=== PATIENT | male | born 1975 | race Caucasian/White ===

== ENCOUNTER 2017-12-01 14:22 | Observation (INO) | payer BC ==
[2017-12-01] MEDS ORDERED: Sodium Chloride 0.9% 10 ML Syringe FLUSH PRN (15:34)
--- NOTE | 2017-12-01 15:56 | EDM.PDOC ---
ED HPI GENERAL MEDICAL PROBLEM - General Chief Complaint: Skin Complaint Stated Complaint: POSS. BLOOD INFECTION-SENT FROM [facility] Time Seen by Provider: 12/01/17 15:23 Source of Information: Reports: Patient, Provider (notes) History Limitations: Reports: No Limitations - History of Present Illness INITIAL COMMENTS - FREE TEXT/NARRATIVE: Patient is a 42-year-old male presents ED complaining of left knee redness with the redness streaking up his left medial thigh. This initially started with a small abrasion to the anterior aspect of the left knee. He states on Friday started developing some localized redness. States as of this morning the redness has extended up his leg stopping just short of his groin. Pain does radiate into his left inguinal region. He has no significant pain with flexion extension of the knee. Denies any fevers, nausea/vomiting, open wounds, history of MRSA, or any additional complaints. He has a previous experience as a child as such that required IV antibiotics for 10 days. Patient was sent from the clinic for IV therapy. Patient has a history of hypertension and hyperlipidemia. Patient's currently taking no medications. Denies any allergies to medication Surgical history right wrist right shoulder in . Left Leg Pain Score (Numeric/FACES): 2 - Related Data Allergies Allergy/AdvReac Type Severity Reaction Status Date / Time No Known Allergies Allergy Verified 12/01/17 17:49 Home Meds: Home Meds . [No Known Home Meds] 12/01/17 [History] Past Medical History - Past Health History Medical/Surgical History: Denies Medical/Surgical History Musculoskeletal History: Reports: Fracture Dermatologic History: Reports: Other (See Below) Other Dermatologic History: Stepped on a nail as a kid and was hospitalized due to infection - Past Surgical History Musculoskeletal Surgical History: Reports: Shoulder Surgery Other Musculoskeletal Surgeries/Procedures:: Wrist surgery Social & Family History - Family History Family Medical History: Noncontributory - Tobacco Use Smoking Status *Q: Never Smoker - Recreational Drug Use Recreational Drug Use: No ED ROS GENERAL - Review of Systems Review Of Systems: See Below Constitutional: Denies: Fever, Chills, Malaise, Decreased Appetite Respiratory: Reports: No Symptoms Cardiovascular: Reports: No Symptoms GI/Abdominal: Reports: No Symptoms Musculoskeletal: Reports: Leg Pain (red streaking from the knee to the left inguinal region. ), Joint Pain (left anterior/medial knee) Skin: Reports: Erythema (redness to the left medial thigh) Neurological: Reports: No Symptoms ED EXAM, SKIN/RASH Exam: See Below Exam Limited By: No Limitations General Appearance: Alert, WD/WN, No Apparent Distress Ears: Hearing Grossly Normal Nose: Normal Inspection Throat/Mouth: Normal Voice, No Airway Compromise Neck: Normal Inspection, Supple Respiratory/Chest: No Respiratory Distress, Lungs Clear, Normal Breath Sounds Cardiovascular: Normal Peripheral Pulses, Regular Rate, Rhythm, No Murmur Peripheral Pulses: 4+: Femoral (L) GI/Abdominal: Normal Bowel Sounds, Soft, Non-Tender, No Organomegaly, No Distention (Male) Exam: Inguinal Lymphadenopathy (slight left) Extremities: Other (small abrasion to the left anterior knee with generalized redness with streaking up his left medial thigh stopping just short of inguinal region. Able to flex/extend the knee with minimal discomfort. ) Neurological: Alert, Oriented, CN II-XII Intact, Normal Cognition, No Motor/ Sensory Deficits Psychiatric: Normal Affect, Normal Mood Course - Vital Signs Last Recorded V/S: Last Vital Signs Temp 98.2 F 12/02/17 16:22 Pulse 76 12/02/17 16:22 Resp 16 12/02/17 16:22 BP 128/89 12/02/17 16:22 Pulse Ox 95 12/02/17 16:22 - Orders/Labs/Meds Orders: Medication Orders Acetaminophen (Tylenol) 650 mg PO Q4H PRN PRN Reason: Pain (Mild 1-3)/fever Hydrocodone Bitart/Acetaminophen (Olean 325-5 Mg) 1 tab PO Q4H PRN PRN Reason: Pain (moderate 4-6) Albuterol/Ipratropium (Duoneb 3.0-0.5 Mg/3 Ml) 3 ml NEB Q4H PRN PRN Reason: Shortness Of Breath/wheezing Bisacodyl (Dulcolax) 5 mg PO DAILY PRN PRN Reason: Constipation Diphenhydramine HCl (Benadryl) 25 mg IVPUSH Q6H PRN PRN Reason: Itching Docusate Sodium (Colace) 100 mg PO BID PRN PRN Reason: Constipation Enoxaparin Sodium (Lovenox) 40 mg SUBCUT DAILY [facility] Last Admin: 12/02/17 08:26 Dose: Not Given Famotidine (Pepcid) 20 mg PO BID [facility] Last Admin: 12/02/17 20:25 Dose: 20 mg Admin: 12/02/17 08:23 Dose: 20 mg Hydralazine HCl (Apresoline) 20 mg IVPUSH Q4H PRN PRN Reason: Hypertension Hydromorphone HCl (Dilaudid) 0.5 mg IVPUSH Q4H PRN PRN Reason: Pain (severe 7-10) Promethazine HCl 12.5 mg/ (Sodium Chloride) 50.5 mls @ 100 mls/hr IV Q6H PRN PRN Reason: Nausea/Vomiting Vancomycin HCl 1 gm/Vancomycin HCl 250 mg/ Sodium Chloride 250 mls @ 166.512 mls/hr IV Q8H [facility] Last Admin: 12/02/17 16:15 Dose: 166.512 mls/hr Infusion: 12/02/17 11:08 Dose: 166.512 mls/hr Admin: 12/02/17 09:37 Dose: 166.512 mls/hr Sodium Chloride (Normal Saline) 100 mls @ 60 mls/hr IV TID@0100,0900,1700 [facility] Last Admin: 12/02/17 17:44 Dose: 60 mls/hr Lorazepam (Ativan) 2 mg IVPUSH Q4H PRN PRN Reason: Seizures Lorazepam (Ativan) 1 mg IV Q6H PRN PRN Reason: Anxiety Magnesium Sulfate (Pharmacy To Dose - Magnesium Replacement) 0 dose .XX ASDIRECTED PRN PRN Reason: RX TO WATCH MAG LEVELS Metoprolol Tartrate (Lopressor) 5 mg IVPUSH Q4H PRN PRN Reason: Tachycardia Ondansetron HCl (Zofran) 4 mg IV Q6H PRN PRN Reason: Nausea/Vomiting Polyethylene Glycol (Miralax) 17 gm PO DAILY PRN PRN Reason: Constipation Potassium Chloride (Pharmacy To Dose - Potassium Replacement) 0 dose .XX ASDIRECTED PRN PRN Reason: RX TO WATCH K LEVELS Saccharomyces Boulardii (Florastor) 250 mg PO BID [facility] Last Admin: 12/02/17 20:25 Dose: 250 mg Admin: 12/02/17 08:23 Dose: 250 mg Admin: 12/01/17 20:12 Dose: 250 mg Senna/Docusate Sodium (Senna Plus) 1 tab PO BID PRN PRN Reason: Constipation Sodium Chloride (Saline Flush) 10 ml FLUSH ASDIRECTED PRN PRN Reason: Keep Vein Open Last Admin: 12/01/17 17:30 Dose: 10 ml Temazepam (Restoril) 15 mg PO BEDTIME PRN PRN Reason: Sleep Vancomycin HCl (Pharmacy To Dose - Vancomycin) 0 dose .XX ASDIRECTED PRN PRN Reason: RX TO DOSE VANCOMYCIN Labs: Laboratory Tests 12/01/17 Range/Units 16:35 Creatinine 1.1 (0.7-1.3) mg/dL Est Cr Clr Drug Dosing 89.41 mL/min Estimated GFR (MDRD) > 60 (>60) mL/min Meds: Medications Generic Name Dose Route Start Last Admin Trade Name Freq PRN Reason Stop Dose Admin Acetaminophen 650 mg 12/01/17 18:00 Tylenol PO Q4H PRN Pain (Mild 1-3)/fever Hydrocodone Bitart/Acetaminophen 1 tab 12/01/17 18:00 Olean 325-5 Mg PO Q4H PRN Pain (moderate 4-6) Albuterol/Ipratropium 3 ml 12/01/17 18:00 Duoneb 3.0-0.5 Mg/3 Ml NEB Q4H PRN Shortness Of Breath/wheezing Bisacodyl 5 mg 12/01/17 18:00 Dulcolax PO DAILY PRN Constipation Diphenhydramine HCl 25 mg 12/01/17 22:46 Benadryl IVPUSH Q6H PRN Itching Docusate Sodium 100 mg 12/01/17 18:00 Colace PO BID PRN Constipation Enoxaparin Sodium 40 mg 12/02/17 09:00 12/02/17 08:26 Lovenox SUBCUT Not Given DAILY LIZZETH Famotidine 20 mg 12/02/17 09:00 12/02/17 20:25 Pepcid PO 20 mg BID LIZZETH Administration Hydralazine HCl 20 mg 12/01/17 18:00 Apresoline IVPUSH Q4H PRN Hypertension Hydromorphone HCl 0.5 mg 12/01/17 18:00 Dilaudid IVPUSH Q4H PRN Pain (severe 7-10) Promethazine HCl 12.5 mg/ 50.5 mls @ 100 mls/hr 12/01/17 18:00 Sodium Chloride IV Q6H PRN Nausea/Vomiting Vancomycin HCl 1 gm/ 250 mls @ 166.512 mls/hr 12/02/17 09:00 12/02/17 16:15 Vancomycin HCl 250 mg/ Sodium IV 166.512 mls/hr Chloride Q8H LIZZETH Administration Sodium Chloride 100 mls @ 60 mls/hr 12/02/17 17:57 12/02/17 17:44 Normal Saline IV 60 mls/hr TID@0100,0900,1700 LIZZETH Administration Lorazepam 2 mg 12/01/17 18:00 Ativan IVPUSH Q4H PRN Seizures Lorazepam 1 mg 12/01/17 18:00 Ativan IV Q6H PRN Anxiety Magnesium Sulfate 0 dose 12/01/17 18:00 Pharmacy To Dose - Magnesium Replacement .XX ASDIRECTED PRN RX TO WATCH MAG LEVELS Metoprolol Tartrate 5 mg 12/01/17 18:00 Lopressor IVPUSH Q4H PRN Tachycardia Ondansetron HCl 4 mg 12/01/17 18:00 Zofran IV Q6H PRN Nausea/Vomiting Polyethylene Glycol 17 gm 12/01/17 18:00 Miralax PO DAILY PRN Constipation Potassium Chloride 0 dose 12/01/17 18:00 Pharmacy To Dose - Potassium Replacement .XX ASDIRECTED PRN RX TO WATCH K LEVELS Saccharomyces Boulardii 250 mg 12/01/17 21:00 12/02/17 20:25 Florastor PO 250 mg BID LIZZETH Administration Senna/Docusate Sodium 1 tab 12/01/17 18:00 Senna Plus PO BID PRN Constipation Sodium Chloride 10 ml 12/01/17 15:34 12/01/17 17:30 Saline Flush FLUSH 10 ml ASDIRECTED PRN Administration Keep Vein Open Temazepam 15 mg 12/01/17 18:00 Restoril PO BEDTIME PRN Sleep Vancomycin HCl 0 dose 12/01/17 18:15 Pharmacy To Dose - Vancomycin .XX ASDIRECTED PRN RX TO DOSE VANCOMYCIN Discontinued Medications Generic Name Dose Route Start Last Admin Trade Name Freq PRN Reason Stop Dose Admin Diphenhydramine HCl 25 mg 12/01/17 18:55 12/01/17 19:03 Benadryl IVPUSH 12/01/17 18:56 25 mg ONETIME ONE Administration Vancomycin HCl 2 gm/ Sodium 250 mls @ 250 mls/hr 12/01/17 16:11 12/01/17 17: 27 Chloride IV 12/01/17 17:10 250 mls/hr ONETIME ONE Administration Sodium Chloride 1,000 mls @ 250 mls/hr 12/01/17 17:45 Normal Saline IV ASDIRECTED LIZZETH Sodium Chloride 1,000 mls @ 250 mls/hr 12/01/17 17:20 12/01/17 17:27 Normal Saline IV 12/01/17 21:19 250 mls/hr ONETIME ONE Administration Vancomycin HCl 1 gm/ 500 mls @ 333.025 mls/hr 12/02/17 02:00 Vancomycin HCl 500 mg/ Sodium IV Chloride Q8H LIZZETH Vancomycin HCl 1 gm/ 500 mls @ 333.025 mls/hr 12/02/17 09:00 Vancomycin HCl 500 mg/ Sodium IV Chloride Q12H LIZZETH Vancomycin HCl 1 gm/ 250 mls @ 166.512 mls/hr 12/02/17 09:00 Vancomycin HCl 250 mg/ Sodium IV Chloride Q12H LIZZETH Sodium Chloride 100 mls @ 50 mls/hr 12/02/17 16:45 Normal Saline IV ASDIRECTED LIZZETH Methylprednisolone Sodium Succinate 60 mg 12/01/17 19:00 12/01/17 19:06 Solu-Medrol IVPUSH 12/01/17 19:01 60 mg ONETIME ONE Administration - Re-Assessments/Exams Free Text/Narrative Re-Assessment/Exam: Reviewed labs obtained today at the [facility]. CBC was essentially normal. ESR 23. Chemistry panel is essentially normal. IV ordered. [address] Shaikh he will see patient in the ED 12/01/17 16:[address] Shaikh will accept patient per MCG findings. I have ordered Blood cultures x2 and vancomycin 2 grams IV for loading dose. Departure - Departure Time of Disposition: 16:35 Disposition: Refer to Observation Condition: Good Clinical Impression: Lymphangitis Cellulitis Qualifiers: Site of cellulitis: extremity Site of cellulitis of extremity: lower extremity Laterality: left Qualified Code(s): L03.116 - Cellulitis of left lower limb - Discharge Information
[2017-12-01] MEDS ORDERED: Sodium Chloride 0.9% 1,000 ML IV ONE (17:20)
[2017-12-01] MEDS ORDERED: Sodium Chloride 0.9% 1,000 ML IV SCH (17:45)
[2017-12-01] MEDS ORDERED: Polyethylene Glycol 3350 Powder 17 GM Packet PO PRN (18:00)
[2017-12-01] MEDS ORDERED: Metoprolol Tartrate 5 MG/5 ML SDV IVPUSH PRN (18:00)
[2017-12-01] MEDS ORDERED: Temazepam 15 MG Cap PO PRN (18:00)
[2017-12-01] MEDS ORDERED: Promethazine 12.5 MG in Sodium Chloride 0.9% 50 ML IV PRN (18:00)
[2017-12-01] MEDS ORDERED: hydrALAZINE 20 MG/ML SDV IVPUSH PRN (18:00)
[2017-12-01] MEDS ORDERED: Acetaminophen 325 MG Tab PO PRN (18:00)
[2017-12-01] MEDS ORDERED: Ondansetron 4 MG/2 ML SDV IV PRN (18:00)
[2017-12-01] MEDS ORDERED: Docusate Sodium 100 MG Cap PO PRN (18:00)
[2017-12-01] MEDS ORDERED: LORazepam 2 MG/ML SDV IV PRN (18:00)
[2017-12-01] MEDS ORDERED: Albuterol/Ipratropium 3.0-0.5 MG/3 ML Neb Soln NEB PRN (18:00)
[2017-12-01] MEDS ORDERED: HYDROmorphone 0.5 MG/0.5 ML SYRINGE IVPUSH PRN (18:00)
[2017-12-01] MEDS ORDERED: LORazepam 2 MG/ML SDV IVPUSH PRN (18:00)
[2017-12-01] MEDS ORDERED: Bisacodyl 5 MG Tab PO PRN (18:00)
[2017-12-01] MEDS ORDERED: Acetaminophen/HYDROcodone 325-5 MG Tab PO PRN (18:00)
[2017-12-01] MEDS ORDERED: Vancomycin 500 MG SDV IV SCH (18:15)
--- NOTE | 2017-12-01 18:20 | PCM.HP ---
<Rosario Rodriguez - Last Filed: 12/01/17 18:28> H&P History of Present Illness - General Date of Service: 12/01/17 Admit Problem/Dx: Admission Diagnosis/Problem Admission Diagnosis/Problem Cellulitis Source of Information: Patient, Provider History Limitations: Reports: No Limitations - History of Present Illness Initial Comments - Free Text/Narative: This is a 42 yo male with past medical hx/o HTN, HLD who comes in from [facility] for left leg cellulitis. Pain is 1/10 with movement only. He reports no fever, chills, headache, nausea, vomiting, diarrhea, chest pain, shortness of breath, or GI/ complaints. His symptoms slightly improved after receiving fluids and IV Vanco in the ED. His initial workup at [facility] showed a CBC and Chemistry that are essentially normal. Only remarkable finding was for ESR 23. He is subsequently admitted to the medical floor for observation. He is a full code. He saw Tamera Fulton NP at [facility]. Left Leg Pain Score (Numeric/FACES): 2 - Related Data Allergies/Adverse Reactions: Allergies Allergy/AdvReac Type Severity Reaction Status Date / Time No Known Allergies Allergy Verified 12/01/17 17:49 Home Medications: Home Meds . [No Known Home Meds] 12/01/17 [History] Past Medical History - Past Health History Medical/Surgical History: Denies Medical/Surgical History Musculoskeletal History: Reports: Fracture Dermatologic History: Reports: Other (See Below) Other Dermatologic History: Stepped on a nail as a kid and was hospitalized due to infection - Past Surgical History Musculoskeletal Surgical History: Reports: Shoulder Surgery Other Musculoskeletal Surgeries/Procedures:: Wrist surgery Social & Family History - Family History Family Medical History: Noncontributory - Tobacco Use Smoking Status *Q: Never Smoker - Recreational Drug Use Recreational Drug Use: No H&P Review of Systems - Review of Systems: Review Of Systems: See Below General: Reports: No Symptoms. Denies: Fever, Chills HEENT: Reports: No Symptoms Pulmonary: Reports: No Symptoms. Denies: Shortness of Breath Cardiovascular: Reports: No Symptoms. Denies: Chest Pain Gastrointestinal: Reports: No Symptoms. Denies: Abdominal Pain, Diarrhea, Nausea, Vomiting Genitourinary: Reports: No Symptoms Musculoskeletal: Reports: Leg Pain (left leg, 1/10 with movement) Skin: Reports: No Symptoms Psychiatric: Reports: No Symptoms Neurological: Reports: No Symptoms Hematologic/Lymphatic: Reports: No Symptoms Immunologic: Reports: No Symptoms Exam - Exam Exam: See Below - Vital Signs Vital Signs: Last Vital Signs Temp 98.8 F 12/01/17 17:41 Pulse 86 12/01/17 17:41 Resp 18 12/01/17 17:41 BP 142/91 H 12/01/17 17:41 Pulse Ox 94 L 12/01/17 17:41 Weight: 113.398 kg - Exam General: Alert, Oriented, Cooperative, Mild Distress HEENT: PERRLA, Hearing Intact, Mucosa Moist & [place], Nares Patent, Normal Nasal Septum, Posterior Pharynx Clear, Conjunctiva Clear, EOMI, EACs Clear, TMs Clear Neck: Supple Lungs: Clear to Auscultation, Normal Respiratory Effort Cardiovascular: Regular Rate, Regular Rhythm GI/Abdominal Exam: Normal Bowel Sounds, Soft, Non-Tender, No Organomegaly, No Distention, No Abnormal Bruit, No Mass, Pelvis Stable (Male) Exam: Deferred Rectal (Males) Exam: Deferred Back Exam: Normal Inspection, Full Range of Motion, NT Extremities: Normal Range of Motion, No Pedal Edema, Normal Capillary Refill, Leg Pain (left leg, 1/10 with movement), Other (able to flex/extend left leg with minimal discomfort) Peripheral Pulses: 2+: Posterior Tibial (L), Posterior Tibial (R), Dorsalis Pedis (L), Dorsalis Pedis (R) Skin: Warm, Dry, Intact, Rash, Wound, Other (Small abrasion to left anterior knee with generalized redness and streaking up his left medial thigh stopping just short of inguinal region) Neurological: Cranial Nerves Intact (grossly) Psychiatric: Alert, Normal Affect, Normal Mood - Problem List (1) Cellulitis SNOMED Code(s): 241056227 ICD Code: L03.90 - CELLULITIS, UNSPECIFIED Status: Acute Priority: High Current Visit: Yes Qualifiers: Site of cellulitis: extremity Site of cellulitis of extremity: lower extremity Laterality: left Qualified Code(s): L03.116 - Cellulitis of left lower limb (2) Lymphangitis SNOMED Code(s): 4321770 ICD Code: I89.1 - LYMPHANGITIS Status: Acute Priority: High Current Visit: Yes (3) HTN (hypertension) SNOMED Code(s): 88722721 ICD Code: I10 - ESSENTIAL (PRIMARY) HYPERTENSION Status: Chronic Priority : Medium Current Visit: Yes Qualifiers: Hypertension type: unspecified Qualified Code(s): I10 - Essential (primary ) hypertension (4) HLD (hyperlipidemia) SNOMED Code(s): 46359989 ICD Code: E78.5 - HYPERLIPIDEMIA, UNSPECIFIED Status: Suspected Priority : Low Current Visit: No Qualifiers: Hyperlipidemia type: unspecified Qualified Code(s): E78.5 - Hyperlipidemia , unspecified Problem List Initiated/Reviewed/Updated: Yes Orders Last 24hrs: Active Orders 24 hr Category Date Time Status Admission Status [Patient Status] [ADT] Routine ADT 12/01/17 17:17 Active Ambulate [RC] ASDIRECTED Care 12/01/17 18:00 Active Height and Weight [RC] DAILY Care 12/01/17 18:00 Active Intake and Output [RC] QSHIFT Care 12/01/17 18:01 Active Oxygen Therapy [RC] PRN Care 12/01/17 18:00 Active Peripheral IV Care [RC] . DIRECTED Care 12/01/17 15:34 Active RT Aerosol Therapy [RC] ASDIRECTED Care 12/01/17 18:02 Active Up ad Beatrice [RC] ASDIRECTED Care 12/01/17 18:00 Active VTE/DVT Education [RC] PER UNIT ROUTINE Care 12/01/17 18:00 Active Vital Signs [RC] Q4H Care 12/01/17 18:00 Active OT Evaluation and Treatment [CONS] Routine Cons 12/01/17 18:03 Active PT Evaluation and Treatment [CONS] Routine Cons 12/01/17 18:03 Active Regular Diet [DIET] Diet 12/01/17 Dinner Active BASIC METABOLIC PANEL,BMP [CHEM] AM Lab 12/02/17 05:11 Ordered BASIC METABOLIC PANEL,BMP [CHEM] AM Lab 12/03/17 05:11 Ordered BASIC METABOLIC PANEL,BMP [CHEM] AM Lab 12/04/17 05:11 Ordered BASIC METABOLIC PANEL,BMP [CHEM] AM Lab 12/05/17 05:11 Ordered C-REACTIVE PROTEIN [CHEM] AM Lab 12/02/17 05:11 Ordered C-REACTIVE PROTEIN [CHEM] AM Lab 12/03/17 05:11 Ordered C-REACTIVE PROTEIN [CHEM] AM Lab 12/04/17 05:11 Ordered C-REACTIVE PROTEIN [CHEM] AM Lab 12/05/17 05:11 Ordered CBC WITH AUTO DIFF [HEME] AM Lab 12/02/17 05:11 Ordered CBC WITH AUTO DIFF [HEME] AM Lab 12/03/17 05:11 Ordered CBC WITH AUTO DIFF [HEME] AM Lab 12/04/17 05:11 Ordered CBC WITH AUTO DIFF [HEME] AM Lab 12/05/17 05:11 Ordered CULTURE BLOOD [BC] Stat Lab 12/01/17 16:35 Received CULTURE BLOOD [BC] Stat Lab 12/01/17 16:45 Received MAGNESIUM [CHEM] AM Lab 12/02/17 05:11 Ordered MAGNESIUM [CHEM] AM Lab 12/03/17 05:11 Ordered MAGNESIUM [CHEM] AM Lab 12/04/17 05:11 Ordered MAGNESIUM [CHEM] AM Lab 12/05/17 05:11 Ordered Acetaminophen [Tylenol] Med 12/01/17 18:00 Active 650 mg PO Q4H PRN Acetaminophen/HYDROcodone [[place] 325-5 MG] Med 12/01/17 18:00 Active 1 tab PO Q4H PRN Albuterol/Ipratropium [DuoNeb 3.0-0.5 MG/3 ML] Med 12/01/17 18:00 Active 3 ml NEB Q4H PRN Bisacodyl [Dulcolax] Med 12/01/17 18:00 Active 5 mg PO DAILY PRN Docusate Sodium [Colace] Med 12/01/17 18:00 Active 100 mg PO BID PRN Docusate Sodium/Sennosides [Senna Plus] Med 12/01/17 18:00 Active 1 tab PO BID PRN Enoxaparin [Lovenox] Med 12/02/17 09:00 Ordered 40 mg SUBCUT DAILY HYDROmorphone [Dilaudid] Med 12/01/17 18:00 Active 0.5 mg IVPUSH Q4H PRN LORazepam [Ativan] Med 12/01/17 18:00 Active 1 mg IV Q6H PRN LORazepam [Ativan] Med 12/01/17 18:00 Active 2 mg IVPUSH Q4H PRN Magnesium Rep Pharmacy to Dose [Pharmacy to Dose - Med 12/01/17 18:00 Pending Magnesium Replacement] 1 dose .XX ASDIRECTED Metoprolol Tartrate [Lopressor] Med 12/01/17 18:00 Active 5 mg IVPUSH Q4H PRN Ondansetron [Zofran] Med 12/01/17 18:00 Active 4 mg IV Q6H PRN Polyethylene Glycol 3350 [MiraLAX] Med 12/01/17 18:00 Active 17 gm PO DAILY PRN Potassium Rep Pharmacy to Dose [Pharmacy to Dose - Med 12/01/17 18:00 Pending Potassium Replacement] 1 dose .XX ASDIRECTED Promethazine [Phenergan] 12.5 mg Med 12/01/17 18:00 Active Sodium Chloride 0.9% [Normal Saline] 50 ml IV Q6H Saccharomyces Boulardii [Florastor] Med 12/01/17 21:00 Active 250 mg PO BID Sodium Chloride 0.9% [Normal Saline] 1,000 ml Med 12/01/17 17:20 Active IV ONETIME Sodium Chloride 0.9% [Saline Flush] Med 12/01/17 15:34 Active 10 ml FLUSH ASDIRECTED PRN Temazepam [Restoril] Med 12/01/17 18:00 Active 15 mg PO BEDTIME PRN Vancomycin Med 12/01/17 18:15 Ordered 1,700.97 mg IV Q12H Vancomycin Pharmacy to Dose [Pharmacy to Dose - Med 12/01/17 18:15 Ordered Vancomycin] 1 dose .XX ASDIRECTED hydrALAZINE [Apresoline] Med 12/01/17 18:00 Active 20 mg IVPUSH Q4H PRN Blood Culture x2 Reflex Set [OM.PC] Stat Oth 12/01/17 16:11 Ordered Peripheral IV Insertion Adult [OM.PC] Routine Oth 12/01/17 15:34 Ordered Resuscitation Status Routine Resus Stat 12/01/17 18:00 Ordered Medication Orders Acetaminophen (Tylenol) 650 mg PO Q4H PRN PRN Reason: Pain (Mild 1-3)/fever Hydrocodone Bitart/Acetaminophen ([place] 325-5 Mg) 1 tab PO Q4H PRN PRN Reason: Pain (moderate 4-6) Albuterol/Ipratropium (Duoneb 3.0-0.5 Mg/3 Ml) 3 ml NEB Q4H PRN PRN Reason: Shortness Of Breath/wheezing Bisacodyl (Dulcolax) 5 mg PO DAILY PRN PRN Reason: Constipation Docusate Sodium (Colace) 100 mg PO BID PRN PRN Reason: Constipation Enoxaparin Sodium (Lovenox) 40 mg SUBCUT DAILY [facility] Hydralazine HCl (Apresoline) 20 mg IVPUSH Q4H PRN PRN Reason: Hypertension Hydromorphone HCl (Dilaudid) 0.5 mg IVPUSH Q4H PRN PRN Reason: Pain (severe 7-10) Sodium Chloride (Normal Saline) 1,000 mls @ 250 mls/hr IV ONETIME ONE Stop: 12/01/17 21:19 Last Admin: 12/01/17 17:27 Dose: 250 mls/hr Promethazine HCl 12.5 mg/ (Sodium Chloride) 50.5 mls @ 100 mls/hr IV Q6H PRN PRN Reason: Nausea/Vomiting Lorazepam (Ativan) 2 mg IVPUSH Q4H PRN PRN Reason: Seizures Lorazepam (Ativan) 1 mg IV Q6H PRN PRN Reason: Anxiety Magnesium Sulfate (Pharmacy To Dose - Magnesium Replacement) 1 dose .XX ASDIRECTED [facility] Metoprolol Tartrate (Lopressor) 5 mg IVPUSH Q4H PRN PRN Reason: Tachycardia Ondansetron HCl (Zofran) 4 mg IV Q6H PRN PRN Reason: Nausea/Vomiting Polyethylene Glycol (Miralax) 17 gm PO DAILY PRN PRN Reason: Constipation Potassium Chloride (Pharmacy To Dose - Potassium Replacement) 1 dose .XX ASDIRECTED [facility] Saccharomyces Boulardii (Florastor) 250 mg PO BID [facility] Senna/Docusate Sodium (Senna Plus) 1 tab PO BID PRN PRN Reason: Constipation Sodium Chloride (Saline Flush) 10 ml FLUSH ASDIRECTED PRN PRN Reason: Keep Vein Open Last Admin: 12/01/17 17:30 Dose: 10 ml Temazepam (Restoril) 15 mg PO BEDTIME PRN PRN Reason: Sleep Vancomycin HCl (Vancomycin) 1,700.97 mg 15 mg/kg (1700.97 mg) IV Q12H [facility] Vancomycin HCl (Pharmacy To Dose - Vancomycin) 1 dose .XX ASDIRECTED [facility] Assessment/Plan Comment:: I/P: Acute: Left leg Cellulitis with Lymphangitis -No fever/chills, tachycardia, leukocytosis -Lymphangitis from left knee to just before inguinal region -1/10 pain with movement only -Vanco 2g IV given in ED -Continue Vancomycin 15mg/kg Q12 hours -Blood Cultures -MRSA-->pending -Monitor -Supportive care Chronic: HTN --> not currently taking medication; Hydralazine PRN HLD Plan: Transfered to medical floor for observation He remains stable and continues to improve clinically Other orders as indicated above Routine AM labs DVT Prophylaxis: Lovenox GI Prophylaxis: Pepcid Ambulated as tolerated Code Status: Full code; PCP: Tamera Fulton, MARINA at [facility] <Sadie Shaikh - Last Filed: 12/01/17 19:42> H&P History of Present Illness - General Admit Problem/Dx: Admission Diagnosis/Problem Admission Diagnosis/Problem Cellulitis Exam - Vital Signs Vital Signs: Last Vital Signs Temp 37.1 C 12/01/17 17:41 Pulse 86 12/01/17 17:41 Resp 18 12/01/17 17:41 BP 142/91 H 12/01/17 17:41 Pulse Ox 94 L 12/01/17 17:41 Problem List Initiated/Reviewed/Updated: Yes Orders Last 24hrs: Active Orders 24 hr Category Date Time Status Admission Status [Patient Status] [ADT] Routine ADT 12/01/17 17:17 Active Ambulate [RC] ASDIRECTED Care 12/01/17 18:00 Active Height and Weight [RC] DAILY Care 12/01/17 18:00 Active Intake and Output [RC] QSHIFT Care 12/01/17 18:01 Active Oxygen Therapy [RC] PRN Care 12/01/17 18:00 Active Peripheral IV Care [RC] . DIRECTED Care 12/01/17 15:34 Active RT Aerosol Therapy [RC] ASDIRECTED Care 12/01/17 18:02 Active Up ad Beatrice [RC] ASDIRECTED Care 12/01/17 18:00 Active VTE/DVT Education [RC] PER UNIT ROUTINE Care 12/01/17 18:00 Active Vital Signs [RC] Q4H Care 12/01/17 18:00 Active OT Evaluation and Treatment [CONS] Routine Cons 12/01/17 18:03 Active PT Evaluation and Treatment [CONS] Routine Cons 12/01/17 18:03 Active Regular Diet [DIET] Diet 12/01/17 Dinner Active BASIC METABOLIC PANEL,BMP [CHEM] AM Lab 12/02/17 05:11 Ordered BASIC METABOLIC PANEL,BMP [CHEM] AM Lab 12/03/17 05:11 Ordered BASIC METABOLIC PANEL,BMP [CHEM] AM Lab 12/04/17 05:11 Ordered BASIC METABOLIC PANEL,BMP [CHEM] AM Lab 12/05/17 05:11 Ordered C-REACTIVE PROTEIN [CHEM] AM Lab 12/02/17 05:11 Ordered C-REACTIVE PROTEIN [CHEM] AM Lab 12/03/17 05:11 Ordered C-REACTIVE PROTEIN [CHEM] AM Lab 12/04/17 05:11 Ordered C-REACTIVE PROTEIN [CHEM] AM Lab 12/05/17 05:11 Ordered CBC WITH AUTO DIFF [HEME] AM Lab 12/02/17 05:11 Ordered CBC WITH AUTO DIFF [HEME] AM Lab 12/03/17 05:11 Ordered CBC WITH AUTO DIFF [HEME] AM Lab 12/04/17 05:11 Ordered CBC WITH AUTO DIFF [HEME] AM Lab 12/05/17 05:11 Ordered CULTURE BLOOD [BC] Stat Lab 12/01/17 16:35 Received CULTURE BLOOD [BC] Stat Lab 12/01/17 16:45 Received MAGNESIUM [CHEM] AM Lab 12/02/17 05:11 Ordered MAGNESIUM [CHEM] AM Lab 12/03/17 05:11 Ordered MAGNESIUM [CHEM] AM Lab 12/04/17 05:11 Ordered MAGNESIUM [CHEM] AM Lab 12/05/17 05:11 Ordered METH-RESIST S.AUR,MRSA BY PCR [MOLEC] Routine Lab 12/01/17 18:31 Ordered Acetaminophen [Tylenol] Med 12/01/17 18:00 Active 650 mg PO Q4H PRN Acetaminophen/HYDROcodone [[place] 325-5 MG] Med 12/01/17 18:00 Active 1 tab PO Q4H PRN Albuterol/Ipratropium [DuoNeb 3.0-0.5 MG/3 ML] Med 12/01/17 18:00 Active 3 ml NEB Q4H PRN Bisacodyl [Dulcolax] Med 12/01/17 18:00 Active 5 mg PO DAILY PRN Docusate Sodium [Colace] Med 12/01/17 18:00 Active 100 mg PO BID PRN Docusate Sodium/Sennosides [Senna Plus] Med 12/01/17 18:00 Active 1 tab PO BID PRN Enoxaparin [Lovenox] Med 12/02/17 09:00 Pending 40 mg SUBCUT DAILY Famotidine [Pepcid] Med 12/02/17 09:00 Ordered 20 mg PO BID HYDROmorphone [Dilaudid] Med 12/01/17 18:00 Active 0.5 mg IVPUSH Q4H PRN LORazepam [Ativan] Med 12/01/17 18:00 Active 1 mg IV Q6H PRN LORazepam [Ativan] Med 12/01/17 18:00 Active 2 mg IVPUSH Q4H PRN Magnesium Rep Pharmacy to Dose [Pharmacy to Dose - Med 12/01/17 18:00 Pending Magnesium Replacement] 1 dose .XX ASDIRECTED Metoprolol Tartrate [Lopressor] Med 12/01/17 18:00 Active 5 mg IVPUSH Q4H PRN Ondansetron [Zofran] Med 12/01/17 18:00 Active 4 mg IV Q6H PRN Polyethylene Glycol 3350 [MiraLAX] Med 12/01/17 18:00 Active 17 gm PO DAILY PRN Potassium Rep Pharmacy to Dose [Pharmacy to Dose - Med 12/01/17 18:00 Pending Potassium Replacement] 1 dose .XX ASDIRECTED Promethazine [Phenergan] 12.5 mg Med 12/01/17 18:00 Active Sodium Chloride 0.9% [Normal Saline] 50 ml IV Q6H Saccharomyces Boulardii [Florastor] Med 12/01/17 21:00 Active 250 mg PO BID Sodium Chloride 0.9% [Normal Saline] 1,000 ml Med 12/01/17 17:20 Active IV ONETIME Sodium Chloride 0.9% [Saline Flush] Med 12/01/17 15:34 Active 10 ml FLUSH ASDIRECTED PRN Temazepam [Restoril] Med 12/01/17 18:00 Active 15 mg PO BEDTIME PRN Vancomycin Pharmacy to Dose [Pharmacy to Dose - Med 12/01/17 18:15 Pending Vancomycin] 1 dose .XX ASDIRECTED hydrALAZINE [Apresoline] Med 12/01/17 18:00 Active 20 mg IVPUSH Q4H PRN Blood Culture x2 Reflex Set [OM.PC] Stat Oth 12/01/17 16:11 Ordered Peripheral IV Insertion Adult [OM.PC] Routine Oth 12/01/17 15:34 Ordered Resuscitation Status Routine Resus Stat 12/01/17 18:00 Ordered Medication Orders Acetaminophen (Tylenol) 650 mg PO Q4H PRN PRN Reason: Pain (Mild 1-3)/fever Hydrocodone Bitart/Acetaminophen ([place] 325-5 Mg) 1 tab PO Q4H PRN PRN Reason: Pain (moderate 4-6) Albuterol/Ipratropium (Duoneb 3.0-0.5 Mg/3 Ml) 3 ml NEB Q4H PRN PRN Reason: Shortness Of Breath/wheezing Bisacodyl (Dulcolax) 5 mg PO DAILY PRN PRN Reason: Constipation Docusate Sodium (Colace) 100 mg PO BID PRN PRN Reason: Constipation Enoxaparin Sodium (Lovenox) 40 mg SUBCUT DAILY [facility] Famotidine (Pepcid) 20 mg PO BID [facility] Hydralazine HCl (Apresoline) 20 mg IVPUSH Q4H PRN PRN Reason: Hypertension Hydromorphone HCl (Dilaudid) 0.5 mg IVPUSH Q4H PRN PRN Reason: Pain (severe 7-10) Sodium Chloride (Normal Saline) 1,000 mls @ 250 mls/hr IV ONETIME ONE Stop: 12/01/17 21:19 Last Admin: 12/01/17 17:27 Dose: 250 mls/hr Promethazine HCl 12.5 mg/ (Sodium Chloride) 50.5 mls @ 100 mls/hr IV Q6H PRN PRN Reason: Nausea/Vomiting Lorazepam (Ativan) 2 mg IVPUSH Q4H PRN PRN Reason: Seizures Lorazepam (Ativan) 1 mg IV Q6H PRN PRN Reason: Anxiety Magnesium Sulfate (Pharmacy To Dose - Magnesium Replacement) 1 dose .XX ASDIRECTED [facility] Metoprolol Tartrate (Lopressor) 5 mg IVPUSH Q4H PRN PRN Reason: Tachycardia Ondansetron HCl (Zofran) 4 mg IV Q6H PRN PRN Reason: Nausea/Vomiting Polyethylene Glycol (Miralax) 17 gm PO DAILY PRN PRN Reason: Constipation Potassium Chloride (Pharmacy To Dose - Potassium Replacement) 1 dose .XX ASDIRECTED [facility] Saccharomyces Boulardii (Florastor) 250 mg PO BID [facility] Senna/Docusate Sodium (Senna Plus) 1 tab PO BID PRN PRN Reason: Constipation Sodium Chloride (Saline Flush) 10 ml FLUSH ASDIRECTED PRN PRN Reason: Keep Vein Open Last Admin: 12/01/17 17:30 Dose: 10 ml Temazepam (Restoril) 15 mg PO BEDTIME PRN PRN Reason: Sleep Vancomycin HCl (Pharmacy To Dose - Vancomycin) 1 dose .XX ASDIRECTED [facility] Assessment/Plan Comment:: Patient complained of sudden scalp and head itching but no arms or body issues. He appears somewhat red in the face and neck but not in the torso. At this point , he does not meet the classic red man syndrome but will give him intravenous benadryl and steroid.
[2017-12-01] MEDS ORDERED: diphenhydrAMINE 50 MG/ML SDV IVPUSH ONE (18:55)
[2017-12-01] MEDS ORDERED: methylPREDNISolone Sodium Succinate 125 MG/2 ML SDV IVPUSH ONE (19:00)
[2017-12-01] MEDS: Saccharomyces Boulardii (Probiotic) 250 MG Cap PO SCH (20:12)
[2017-12-01] MEDS ORDERED: diphenhydrAMINE 50 MG/ML SDV IVPUSH PRN (22:46)
[2017-12-02] MEDS ORDERED: Vancomycin 1500 MG in Sodium Chloride 0.9% 500 ML IV SCH ×6 (02:00→09:00)
[2017-12-02] MEDS: Famotidine 20 MG Tab PO SCH ×2 (08:23→20:25)
[2017-12-02] MEDS: Enoxaparin 40 MG/0.4 ML Syringe SUBCUT SCH ×2 (08:23→08:26)
[2017-12-02] MEDS: Saccharomyces Boulardii (Probiotic) 250 MG Cap PO SCH ×2 (08:23→20:25)
[2017-12-02] MEDS ORDERED: Vancomycin 1 GM, Vancomycin 250 MG in Sodium Chloride 0.9% 250 ML IV SCH (09:00)
[2017-12-02] MEDS: Vancomycin 1 GM, Vancomycin 250 MG in Sodium Chloride 0.9% 250 ML IV SCH ×2 (09:37→16:15)
--- NOTE | 2017-12-02 13:02 | PCM.PN ---
- General Info Date of Service: 12/02/17 Admission Dx/Problem (Free Text): Admission Diagnosis/Problem Admission Diagnosis/Problem Cellulitis Subjective Update: In to see Gilberto today. He is sitting up in bed. Overall he is doing quite well. He has no complaints. He has been sleeping well. Good appetite. Pain is controlled. No leg pain, chest pain, dyspnea, itchiness, or facial/neck redness. Urinating. No concerns from nursing. Functional Status: Reports: Pain Controlled, Tolerating Diet, Ambulating, Urinating - Review of Systems General: Reports: No Symptoms. Denies: Fever, Chills HEENT: Reports: No Symptoms Pulmonary: Reports: No Symptoms. Denies: Shortness of Breath Cardiovascular: Reports: No Symptoms. Denies: Chest Pain, Palpitations Gastrointestinal: Reports: No Symptoms Genitourinary: Reports: No Symptoms. Denies: Dysuria, Frequency, Burning, Pain Musculoskeletal: Reports: No Symptoms. Denies: Leg Pain Skin: Reports: Other (Small abrasion to left anterior knee with generalized redness and streaking up his left medial thigh stopping just short of inguinal region) Neurological: Reports: No Symptoms Psychiatric: Reports: No Symptoms - Patient Data Vitals - Most Recent: Last Vital Signs Temp 98.1 F 12/02/17 08:17 Pulse 90 12/02/17 08:17 Resp 14 12/02/17 08:17 BP 128/88 12/02/17 08:19 Pulse Ox 96 12/02/17 08:17 Weight - Most Recent: 249 lb I&O - Last 24 Hours: Intake & Output 12/01/17 12/02/17 12/02/17 22:59 06:59 14:59 Intake Total 900 120 Output Total 1825 Balance -925 120 Lab Results Last 24 Hours: Laboratory Results - last 24 hr 12/01/17 12/02/17 12/02/17 Range/Units 16:35 06:17 06:17 WBC 10.81 H (4.23-9.07) K/mm3 RBC 4.77 (4.63-6.08) M/mm3 Hgb 14.3 (13.7-17.5) gm/L Hct 43.2 (40.1-51.0) % MCV 90.6 (79.0-92.2) fl MCH 30.0 (25.7-32.2) pg MCHC 33.1 (32.2-35.5) g/dl RDW Std Deviation 41.7 (35.1-43.9) fL Plt Count 285 (163-337) K/mm3 MPV 9.3 L (9.4-12.3) fl Neut % (Auto) 86.3 H (34.0-67.9) % Lymph % (Auto) 8.2 L (21.8-53.1) % [place] % (Auto) 5.2 L (5.3-12.2) % Eos % (Auto) 0 L (0.8-7.0) Baso % (Auto) 0.1 (0.1-1.2) % Neut # (Auto) 9.33 H (1.78-5.38) K/mm3 Lymph # (Auto) 0.89 L (1.32-3.57) K/mm3 [place] # (Auto) 0.56 (0.30-0.82) K/mm3 Eos # (Auto) 0.00 L (0.04-0.54) K/mm3 Baso # (Auto) 0.01 (0.01-0.08) K/mm3 Manual Slide Review Abnormal smear Sodium 138 (136-145) mEq/L Potassium 4.5 (3.5-5.1) mEq/L Chloride 104 (98-107) mEq/L Carbon Dioxide 26 (21-32) mEq/L Anion Gap 12.5 (5-15) BUN 10 (7-18) mg/dL Creatinine 1.1 1.0 (0.7-1.3) mg/dL Est Cr Clr Drug Dosing 89.41 98.35 mL/min Estimated GFR (MDRD) > 60 > 60 (>60) mL/min BUN/Creatinine Ratio 10.0 L (14-18) Glucose 129 H (74-106) mg/dL Calcium 9.4 (8.5-10.1) mg/dL Magnesium 2.1 (1.8-2.4) mg/dl C-Reactive Protein 1.5 H* (<1.0) mg/dL MRSA (PCR) 12/02/17 Range/Units 06:21 WBC (4.23-9.07) K/mm3 RBC (4.63-6.08) M/mm3 Hgb (13.7-17.5) gm/L Hct (40.1-51.0) % MCV (79.0-92.2) fl MCH (25.7-32.2) pg MCHC (32.2-35.5) g/dl RDW Std Deviation (35.1-43.9) fL Plt Count (163-337) K/mm3 MPV (9.4-12.3) fl Neut % (Auto) (34.0-67.9) % Lymph % (Auto) (21.8-53.1) % [place] % (Auto) (5.3-12.2) % Eos % (Auto) (0.8-7.0) Baso % (Auto) (0.1-1.2) % Neut # (Auto) (1.78-5.38) K/mm3 Lymph # (Auto) (1.32-3.57) K/mm3 [place] # (Auto) (0.30-0.82) K/mm3 Eos # (Auto) (0.04-0.54) K/mm3 Baso # (Auto) (0.01-0.08) K/mm3 Manual Slide Review Sodium (136-145) mEq/L Potassium (3.5-5.1) mEq/L Chloride (98-107) mEq/L Carbon Dioxide (21-32) mEq/L Anion Gap (5-15) BUN (7-18) mg/dL Creatinine (0.7-1.3) mg/dL Est Cr Clr Drug Dosing mL/min Estimated GFR (MDRD) (>60) mL/min BUN/Creatinine Ratio (14-18) Glucose (74-106) mg/dL Calcium (8.5-10.1) mg/dL Magnesium (1.8-2.4) mg/dl C-Reactive Protein (<1.0) mg/dL MRSA (PCR) Negative Med Orders - Current: Current Medications Acetaminophen (Tylenol) 650 mg PO Q4H PRN PRN Reason: Pain (Mild 1-3)/fever Hydrocodone Bitart/Acetaminophen ([place] 325-5 Mg) 1 tab PO Q4H PRN PRN Reason: Pain (moderate 4-6) Albuterol/Ipratropium (Duoneb 3.0-0.5 Mg/3 Ml) 3 ml NEB Q4H PRN PRN Reason: Shortness Of Breath/wheezing Bisacodyl (Dulcolax) 5 mg PO DAILY PRN PRN Reason: Constipation Diphenhydramine HCl (Benadryl) 25 mg IVPUSH Q6H PRN PRN Reason: Itching Docusate Sodium (Colace) 100 mg PO BID PRN PRN Reason: Constipation Enoxaparin Sodium (Lovenox) 40 mg SUBCUT DAILY [facility] Last Admin: 12/02/17 08:26 Dose: Not Given Famotidine (Pepcid) 20 mg PO BID [facility] Last Admin: 12/02/17 08:23 Dose: 20 mg Hydralazine HCl (Apresoline) 20 mg IVPUSH Q4H PRN PRN Reason: Hypertension Hydromorphone HCl (Dilaudid) 0.5 mg IVPUSH Q4H PRN PRN Reason: Pain (severe 7-10) Promethazine HCl 12.5 mg/ (Sodium Chloride) 50.5 mls @ 100 mls/hr IV Q6H PRN PRN Reason: Nausea/Vomiting Vancomycin HCl 1 gm/Vancomycin HCl 250 mg/ Sodium Chloride 250 mls @ 166.512 mls/hr IV Q8H [facility] Last Admin: 12/02/17 09:37 Dose: 166.512 mls/hr Lorazepam (Ativan) 2 mg IVPUSH Q4H PRN PRN Reason: Seizures Lorazepam (Ativan) 1 mg IV Q6H PRN PRN Reason: Anxiety Magnesium Sulfate (Pharmacy To Dose - Magnesium Replacement) 0 dose .XX ASDIRECTED PRN PRN Reason: RX TO WATCH MAG LEVELS Metoprolol Tartrate (Lopressor) 5 mg IVPUSH Q4H PRN PRN Reason: Tachycardia Ondansetron HCl (Zofran) 4 mg IV Q6H PRN PRN Reason: Nausea/Vomiting Polyethylene Glycol (Miralax) 17 gm PO DAILY PRN PRN Reason: Constipation Potassium Chloride (Pharmacy To Dose - Potassium Replacement) 0 dose .XX ASDIRECTED PRN PRN Reason: RX TO WATCH K LEVELS Saccharomyces Boulardii (Florastor) 250 mg PO BID [facility] Last Admin: 12/02/17 08:23 Dose: 250 mg Senna/Docusate Sodium (Senna Plus) 1 tab PO BID PRN PRN Reason: Constipation Sodium Chloride (Saline Flush) 10 ml FLUSH ASDIRECTED PRN PRN Reason: Keep Vein Open Last Admin: 12/01/17 17:30 Dose: 10 ml Temazepam (Restoril) 15 mg PO BEDTIME PRN PRN Reason: Sleep Vancomycin HCl (Pharmacy To Dose - Vancomycin) 0 dose .XX ASDIRECTED PRN PRN Reason: RX TO DOSE VANCOMYCIN Discontinued Medications Diphenhydramine HCl (Benadryl) 25 mg IVPUSH ONETIME ONE Stop: 12/01/17 18:56 Last Admin: 12/01/17 19:03 Dose: 25 mg Vancomycin HCl 2 gm/ Sodium (Chloride) 250 mls @ 250 mls/hr IV ONETIME ONE Stop: 12/01/17 17:10 Last Admin: 12/01/17 17:27 Dose: 250 mls/hr Sodium Chloride (Normal Saline) 1,000 mls @ 250 mls/hr IV ASDIRECTED LIZZETH Sodium Chloride (Normal Saline) 1,000 mls @ 250 mls/hr IV ONETIME ONE Stop: 12/01/17 21:19 Last Admin: 12/01/17 17:27 Dose: 250 mls/hr Vancomycin HCl 1 gm/Vancomycin HCl 500 mg/ Sodium Chloride 500 mls @ 333.025 mls/hr IV Q8H LIZZETH Vancomycin HCl 1 gm/Vancomycin HCl 500 mg/ Sodium Chloride 500 mls @ 333.025 mls/hr IV Q12H LIZZETH Vancomycin HCl 1 gm/Vancomycin HCl 250 mg/ Sodium Chloride 250 mls @ 166.512 mls/hr IV Q12H LIZZETH Methylprednisolone Sodium Succinate (Solu-Medrol) 60 mg IVPUSH ONETIME ONE Stop: 12/01/17 19:01 Last Admin: 12/01/17 19:06 Dose: 60 mg - Exam Quality Assessment: DVT Prophylaxis General: Alert, Oriented, Cooperative, No Acute Distress HEENT: Pupils Equal, Pupils Reactive, EOMI, Mucous Membr. Moist/[place] Neck: Supple Lungs: Clear to Auscultation, Normal Respiratory Effort Cardiovascular: Regular Rate, Regular Rhythm GI/Abdominal Exam: Normal Bowel Sounds, Soft, Non-Tender, No Organomegaly, No Distention, No Abnormal Bruit, No Mass, Pelvis Stable (Male) Exam: Deferred Back Exam: Normal Inspection, Full Range of Motion Extremities: Normal Range of Motion, No Pedal Edema, Normal Capillary Refill. No: Leg Pain (able to flex/extend left leg with no discomfort) Peripheral Pulses: 2+: Posterior Tibial (L), Posterior Tibial (R), Dorsalis Pedis (L), Dorsalis Pedis (R) Skin: Warm, Dry, Intact, Rash, Other (Small abrasion to left anterior knee with generalized redness and streaking up his left medial thigh stopping just short of inguinal region) Wound/Incisions: No Drainage, Erythema Improving Neurological: No New Focal Deficit Psy/Mental Status: Alert, Normal Affect, Normal Mood - Problem List & Annotations (1) Cellulitis SNOMED Code(s): 433915761 Code(s): L03.90 - CELLULITIS, UNSPECIFIED Status: Acute Priority: High Current Visit: Yes Qualifiers: Site of cellulitis: extremity Site of cellulitis of extremity: lower extremity Laterality: left Qualified Code(s): L03.116 - Cellulitis of left lower limb (2) Lymphangitis SNOMED Code(s): 6228132 Code(s): I89.1 - LYMPHANGITIS Status: Acute Priority: High Current Visit: Yes (3) HTN (hypertension) SNOMED Code(s): 81775129 Code(s): I10 - ESSENTIAL (PRIMARY) HYPERTENSION Status: Chronic Priority : Medium Current Visit: Yes Qualifiers: Hypertension type: unspecified Qualified Code(s): I10 - Essential (primary ) hypertension (4) HLD (hyperlipidemia) SNOMED Code(s): 34395178 Code(s): E78.5 - HYPERLIPIDEMIA, UNSPECIFIED Status: Suspected Priority: Low Current Visit: No Qualifiers: Hyperlipidemia type: unspecified Qualified Code(s): E78.5 - Hyperlipidemia , unspecified - Problem List Review Problem List Initiated/Reviewed/Updated: Yes - My Orders Last 24 Hours: My Active Orders 12/02/17 09:00 Famotidine [Pepcid] 20 mg PO BID - Plan Plan:: I/P: Acute: Left leg Cellulitis with Lymphangitis -No fever/chills, tachycardia, leukocytosis -Lymphangitis from left knee to just before inguinal region--> improving -07/30 pain with movement only--> no pain now -Vanco 2g IV given in ED -Continue Vancomycin 15mg/kg Q12 hours -Blood Cultures--> pending -MRSA-->negative -Monitor -Supportive care Resolved: Vancomyocin Sensitivity, mild -Pruritis of scalp and mild erythema of face/neck--> IV Benadryl and Steroids -No chest pain, dyspnea, torso erythema, angioedema, or hypotension -Does not fit criteria for "Red Man Syndrome" -Decrease infusion rate -Monitor Chronic: HTN --> not currently taking medication; Hydralazine PRN HLD Plan: Transfered to medical floor for observation He remains stable and continues to improve clinically Other orders as indicated above Routine AM labs DVT Prophylaxis: Lovenox GI Prophylaxis: Pepcid Ambulated as tolerated Code Status: Full code; PCP: Tamera Fulton NP at [facility]
[2017-12-02] MEDS ORDERED: Sodium Chloride 0.9% 100 ML IV SCH (16:45)
[2017-12-02] MEDS: Sodium Chloride 0.9% 100 ML IV SCH (17:44)
[2017-12-03] MEDS ORDERED: Vancomycin 500 MG SDV ONE (00:37)
[2017-12-03] MEDS: Vancomycin 1 GM, Vancomycin 250 MG in Sodium Chloride 0.9% 250 ML IV SCH ×2 (00:58→09:24)
[2017-12-03] MEDS: Sodium Chloride 0.9% 100 ML IV SCH ×2 (00:58→09:23)
[2017-12-03] MEDS: Enoxaparin 40 MG/0.4 ML Syringe SUBCUT SCH (09:24)
[2017-12-03] MEDS: Saccharomyces Boulardii (Probiotic) 250 MG Cap PO SCH (09:26)
[2017-12-03] MEDS: Famotidine 20 MG Tab PO SCH (09:26)
--- NOTE | 2017-12-03 11:28 | PCM.DCSUM1 ---
Discharge Summary - Hospital Course HPI Initial Comments: Patient is a 42-year-old male presents ED complaining of left knee redness with the redness streaking up his left medial thigh. This initially started with a small abrasion to the anterior aspect of the left knee. He states on Friday started developing some localized redness. States as of this morning the redness has extended up his leg stopping just short of his groin. Pain does radiate into his left inguinal region. He has no significant pain with flexion extension of the knee. Denies any fevers, nausea/vomiting, open wounds, history of MRSA, or any additional complaints. He has a previous experience as a child as such that required IV antibiotics for 10 days. Patient was sent from the clinic for IV therapy. Patient has a history of hypertension and hyperlipidemia. Patient's currently taking no medications. Denies any allergies to medication Surgical history right wrist right shoulder in . - Discharge Data Discharge Date: 12/03/17 (ADMIT 12/01/17) Discharge Disposition: Home, Self-Care 01 Condition: Good - Discharge Diagnosis/Problem(s) (1) Cellulitis SNOMED Code(s): 868438745 ICD Code: L03.90 - CELLULITIS, UNSPECIFIED Status: Acute Priority: High Current Visit: Yes Qualifiers: Site of cellulitis: extremity Site of cellulitis of extremity: lower extremity Laterality: left Qualified Code(s): L03.116 - Cellulitis of left lower limb (2) Lymphangitis SNOMED Code(s): 7881371 ICD Code: I89.1 - LYMPHANGITIS Status: Acute Priority: High Current Visit: Yes (3) HTN (hypertension) SNOMED Code(s): 54010140 ICD Code: I10 - ESSENTIAL (PRIMARY) HYPERTENSION Status: Chronic Priority : Medium Current Visit: Yes Qualifiers: Hypertension type: unspecified Qualified Code(s): I10 - Essential (primary ) hypertension (4) HLD (hyperlipidemia) SNOMED Code(s): 36308495 ICD Code: E78.5 - HYPERLIPIDEMIA, UNSPECIFIED Status: Suspected Priority : Low Current Visit: No Qualifiers: Hyperlipidemia type: unspecified Qualified Code(s): E78.5 - Hyperlipidemia , unspecified - Patient Summary/Data Operative Procedure(s) Performed: none Complications: none Consults: none Labs Pending at D/C: none Recommended Follow-up Testing/Procedures: Follow up with PCP in 7-10 days Planned Operative Procedure(s) after DC: none Hospital Course: I/P: Acute: Left leg Cellulitis with Lymphangitis -No fever/chills, tachycardia, leukocytosis -Lymphangitis from left knee to just before inguinal region--> improving -07/30 pain with movement only--> no pain now -WBC 10.81-->6.62; CRP 1.5-->0.7 -Vanco 2g IV given in ED -Continue Vancomycin 15mg/kg Q12 hours--> Send home on Bactrim DS BID x 5 days -Blood Cultures--> no growth after 1 day -MRSA-->negative -Monitor -Supportive care Resolved: Vancomyocin Sensitivity, mild -Pruritis of scalp and mild erythema of face/neck--> IV Benadryl and Steroids -No chest pain, dyspnea, torso erythema, angioedema, or hypotension -Does not fit criteria for "Red Man Syndrome" -Decrease infusion rate -Monitor Chronic: HTN --> not currently taking medication; Hydralazine PRN HLD Plan: Transfered to medical floor for observation He remains stable and continues to improve clinically Other orders as indicated above Routine AM labs DVT Prophylaxis: Lovenox GI Prophylaxis: Pepcid Ambulated as tolerated D/C today Code Status: Full code; PCP: Tamera Fultno NP at [facility] Gilberto has recovered quite well after being admitted for left lower leg cellulitis with lympangitis. He had multiple tests done and was given IV antibiotic treatment. He should follow-up with his primary care provider in 7- 10 days. His BP was also elevated while here and should be rechecked with his primary care provider for further workup. He was discharged home on Bactrim DS BID x5 days for completion of cellulitis treatment. He will be discharged home today. - Patient Instructions Diet: Heart Healthy Diet, Low Sodium Activity: As Tolerated Driving: May Drive Today Showering/Bathing: May Shower Notify Provider of: Fever, Increased Pain, Swelling and Redness, Drainage, Nausea and/or Vomiting - Discharge Plan Prescriptions/Med Rec: Sulfamethoxazole/Trimethoprim [Bactrim Ds Tablet] 1 tab PO BID 5 Days #10 tablet Home Medications: Home Meds Sulfamethoxazole/Trimethoprim [Bactrim Ds Tablet] 1 tab PO BID 5 Days #10 tablet 12/03/17 [Rx] Patient Handouts: Lymphangitis, Adult, Cellulitis, Adult, [id number], Hypertension, [id number] Forms: ED Department Discharge Referrals: PCP,None [Primary Care Provider] - - Discharge Summary/Plan Comment DC Time >30 min.: Yes (40) - General Info Date of Service: 12/03/17 Admission Dx/Problem (Free Text: Admission Diagnosis/Problem Admission Diagnosis/Problem Cellulitis Subjective Update: In to see Gilberto today. He is standing up packing to go home. Overall he is doing quite well. He has no complaints. He has been sleeping well. Good appetite. Pain is controlled. No leg pain, chest pain, dyspnea, itchiness, or facial/neck redness. Urinating. No concerns from nursing. He is ready to be d/c' d home today. Functional Status: Reports: Pain Controlled, Tolerating Diet, Ambulating, Urinating - Review of Systems General: Reports: No Symptoms. Denies: Fever, Chills HEENT: Reports: No Symptoms Pulmonary: Reports: No Symptoms. Denies: Shortness of Breath Cardiovascular: Reports: No Symptoms. Denies: Chest Pain Gastrointestinal: Reports: No Symptoms. Denies: Abdominal Pain, Diarrhea, Nausea, Vomiting Genitourinary: Reports: No Symptoms. Denies: Dysuria, Frequency, Burning, Pain Musculoskeletal: Reports: No Symptoms Skin: Reports: Other (Small abrasion to left anterior knee with generalized redness, no more streaking up his left medial thigh) Neurological: Reports: No Symptoms Psychiatric: Reports: No Symptoms - Patient Data Vitals - Most Recent: Last Vital Signs Temp 98.2 F 12/03/17 04:46 Pulse 61 12/03/17 04:46 Resp 14 12/03/17 04:46 BP 123/84 12/03/17 04:46 Pulse Ox 94 L 12/03/17 04:46 Weight - Most Recent: 248 lb I&O - Last 24 hours: Intake & Output 12/02/17 12/03/17 12/03/17 22:59 06:59 14:59 Intake Total 1430 1450 180 Output Total 1300 2100 Balance 130 -650 180 Lab Results - Last 24 hrs: Laboratory Results - last 24 hr 05/16/18 05/16/18 05/16/18 Range/Units 05:48 05:48 08:38 WBC 6.62 (4.23-9.07) K/mm3 RBC 4.75 (4.63-6.08) M/mm3 Hgb 14.3 (13.7-17.5) gm/L Hct 43.1 (40.1-51.0) % MCV 90.7 (79.0-92.2) fl MCH 30.1 (25.7-32.2) pg MCHC 33.2 (32.2-35.5) g/dl RDW Std Deviation 42.0 (35.1-43.9) fL Plt Count 261 (163-337) K/mm3 MPV 9.8 (9.4-12.3) fl Neut % (Auto) 63.8 (34.0-67.9) % Lymph % (Auto) 23.7 (21.8-53.1) % [place] % (Auto) 10.0 (5.3-12.2) % Eos % (Auto) 2.0 (0.8-7.0) Baso % (Auto) 0.3 (0.1-1.2) % Neut # (Auto) 4.23 (1.78-5.38) K/mm3 Lymph # (Auto) 1.57 (1.32-3.57) K/mm3 [place] # (Auto) 0.66 (0.30-0.82) K/mm3 Eos # (Auto) 0.13 (0.04-0.54) K/mm3 Baso # (Auto) 0.02 (0.01-0.08) K/mm3 Sodium 139 (136-145) mEq/L Potassium 3.8 (3.5-5.1) mEq/L Chloride 104 (98-107) mEq/L Carbon Dioxide 28 (21-32) mEq/L Anion Gap 10.8 (5-15) BUN 15 (7-18) mg/dL Creatinine 1.1 (0.7-1.3) mg/dL Est Cr Clr Drug Dosing 89.41 mL/min Estimated GFR (MDRD) > 60 (>60) mL/min BUN/Creatinine Ratio 13.6 L (14-18) Glucose 106 (74-106) mg/dL Calcium 8.9 (8.5-10.1) mg/dL Magnesium 2.1 (1.8-2.4) mg/dl C-Reactive Protein 0.7 (<1.0) mg/dL Vancomycin Trough 16.6 (10.0-20.0) TIERA Results - Last 24 hrs: Microbiology 12/01/17 16:45 Aerobic Blood Culture - Preliminary Blood - Venous - Lab Draw NO GROWTH AFTER 1 DAY Anaerobic Blood Culture - Preliminary NO GROWTH AFTER 1 DAY 12/01/17 16:35 Aerobic Blood Culture - Preliminary Blood - Venous NO GROWTH AFTER 1 DAY Anaerobic Blood Culture - Preliminary NO GROWTH AFTER 1 DAY Med Orders - Current: Current Medications Acetaminophen (Tylenol) 650 mg PO Q4H PRN PRN Reason: Pain (Mild 1-3)/fever Hydrocodone Bitart/Acetaminophen ([place] 325-5 Mg) 1 tab PO Q4H PRN PRN Reason: Pain (moderate 4-6) Albuterol/Ipratropium (Duoneb 3.0-0.5 Mg/3 Ml) 3 ml NEB Q4H PRN PRN Reason: Shortness Of Breath/wheezing Bisacodyl (Dulcolax) 5 mg PO DAILY PRN PRN Reason: Constipation Diphenhydramine HCl (Benadryl) 25 mg IVPUSH Q6H PRN PRN Reason: Itching Docusate Sodium (Colace) 100 mg PO BID PRN PRN Reason: Constipation Enoxaparin Sodium (Lovenox) 40 mg SUBCUT DAILY [facility] Last Admin: 12/03/17 09:24 Dose: Not Given Famotidine (Pepcid) 20 mg PO BID [facility] Last Admin: 12/03/17 09:26 Dose: 20 mg Hydralazine HCl (Apresoline) 20 mg IVPUSH Q4H PRN PRN Reason: Hypertension Hydromorphone HCl (Dilaudid) 0.5 mg IVPUSH Q4H PRN PRN Reason: Pain (severe 7-10) Promethazine HCl 12.5 mg/ (Sodium Chloride) 50.5 mls @ 100 mls/hr IV Q6H PRN PRN Reason: Nausea/Vomiting Lorazepam (Ativan) 2 mg IVPUSH Q4H PRN PRN Reason: Seizures Lorazepam (Ativan) 1 mg IV Q6H PRN PRN Reason: Anxiety Magnesium Sulfate (Pharmacy To Dose - Magnesium Replacement) 0 dose .XX ASDIRECTED PRN PRN Reason: RX TO WATCH MAG LEVELS Metoprolol Tartrate (Lopressor) 5 mg IVPUSH Q4H PRN PRN Reason: Tachycardia Ondansetron HCl (Zofran) 4 mg IV Q6H PRN PRN Reason: Nausea/Vomiting Polyethylene Glycol (Miralax) 17 gm PO DAILY PRN PRN Reason: Constipation Potassium Chloride (Pharmacy To Dose - Potassium Replacement) 0 dose .XX ASDIRECTED PRN PRN Reason: RX TO WATCH K LEVELS Saccharomyces Boulardii (Florastor) 250 mg PO BID [facility] Last Admin: 12/03/17 09:26 Dose: 250 mg Senna/Docusate Sodium (Senna Plus) 1 tab PO BID PRN PRN Reason: Constipation Sodium Chloride (Saline Flush) 10 ml FLUSH ASDIRECTED PRN PRN Reason: Keep Vein Open Last Admin: 12/01/17 17:30 Dose: 10 ml Temazepam (Restoril) 15 mg PO BEDTIME PRN PRN Reason: Sleep Vancomycin HCl (Pharmacy To Dose - Vancomycin) 0 dose .XX ASDIRECTED PRN PRN Reason: RX TO DOSE VANCOMYCIN Discontinued Medications Diphenhydramine HCl (Benadryl) 25 mg IVPUSH ONETIME ONE Stop: 12/01/17 18:56 Last Admin: 12/01/17 19:03 Dose: 25 mg Vancomycin HCl 2 gm/ Sodium (Chloride) 250 mls @ 250 mls/hr IV ONETIME ONE Stop: 12/01/17 17:10 Last Admin: 12/01/17 17:27 Dose: 250 mls/hr Sodium Chloride (Normal Saline) 1,000 mls @ 250 mls/hr IV ASDIRECTED LIZZETH Sodium Chloride (Normal Saline) 1,000 mls @ 250 mls/hr IV ONETIME ONE Stop: 12/01/17 21:19 Last Admin: 12/01/17 17:27 Dose: 250 mls/hr Vancomycin HCl 1 gm/Vancomycin HCl 500 mg/ Sodium Chloride 500 mls @ 333.025 mls/hr IV Q8H LIZZETH Vancomycin HCl 1 gm/Vancomycin HCl 500 mg/ Sodium Chloride 500 mls @ 333.025 mls/hr IV Q12H LIZZETH Vancomycin HCl 1 gm/Vancomycin HCl 250 mg/ Sodium Chloride 250 mls @ 166.512 mls/hr IV Q12H LIZZETH Vancomycin HCl 1 gm/Vancomycin HCl 250 mg/ Sodium Chloride 250 mls @ 166.512 mls/hr IV Q8H [facility] Last Admin: 12/03/17 09:24 Dose: Not Given Sodium Chloride (Normal Saline) 100 mls @ 50 mls/hr IV ASDIRECTED [facility] Sodium Chloride (Normal Saline) 100 mls @ 60 mls/hr IV TID@0100,0900,1700 [facility] Last Admin: 12/03/17 09:23 Dose: Not Given Methylprednisolone Sodium Succinate (Solu-Medrol) 60 mg IVPUSH ONETIME ONE Stop: 12/01/17 19:01 Last Admin: 12/01/17 19:06 Dose: 60 mg Vancomycin HCl (Vancomycin) Confirm Administered Dose 500 mg .ROUTE .STK-MED ONE Stop: 12/03/17 00:38 Last Admin: 12/03/17 00:48 Dose: Not Given - Exam Quality Assessment: Reports: DVT Prophylaxis General: Reports: Alert, Oriented, Cooperative, No Acute Distress HEENT: Reports: Pupils Equal, Pupils Reactive, EOMI, Mucous Membr. Moist/[place] Neck: Reports: Supple Lungs: Reports: Clear to Auscultation, Normal Respiratory Effort Cardiovascular: Reports: Regular Rate, Regular Rhythm GI/Abdominal Exam: Normal Bowel Sounds, Soft, Non-Tender, No Organomegaly, No Distention, No Abnormal Bruit, No Mass, Pelvis Stable (Male) Exam: Deferred Rectal (Males) Exam: Deferred Back Exam: Reports: Normal Inspection, Full Range of Motion Extremities: Normal Range of Motion, Non-Tender, No Pedal Edema, Normal Capillary Refill. No: Leg Pain (able to flex/extend left leg with no discomfort ) Skin: Reports: Warm, Dry, Intact, Other (Small abrasion to left anterior knee with generalized redness, improving- no more streaking up his left medial thigh ) Wound/Incisions: Reports: Healing Well, No Drainage, Erythema Improving Neurological: Reports: No New Focal Deficit Psy/Mental Status: Reports: Alert, Normal Affect, Normal Mood
== END 2017-12-03 12:05 | disposition home or self-care (01) ==
LOC: JD.ED 14:22 → JD.MS 17:17
PROVIDERS: ADMIT Physician Assistant Medical; ATTEND Physician Assistant Medical
DX: L03.116 Cellulitis of left lower limb (principal); I89.1 Lymphangitis; I10 Essential (primary) hypertension; E78.5 Hyperlipidemia, unspecified; L29.8 Other pruritus
CPT/HCPCS: 36415; 80048; 80202; 82565; 83735; 85025; 86140; 87040; 87641; 96361; 96365; 96366; 96375; 99284; A9270; G0378; J1200; J2930; J3370; J7030; J7040; J7050; J1650

== ENCOUNTER 2020-10-21 08:24 | Emergency (ER) | payer BC ==
--- NOTE | 2020-10-21 08:47 | EDM.PDOC ---
ED HPI GENERAL MEDICAL PROBLEM - General Chief Complaint: Abdominal Pain Stated Complaint: ABDOMINAL PAIN Time Seen by Provider: 10/21/20 08:46 - History of Present Illness INITIAL COMMENTS - FREE TEXT/NARRATIVE: 45-year-old male presents the emergency room with abdominal pain. This started a week ago. He cannot attribute what makes it better or worse. After a couple of days it got better and then returned again on . The pain seems to be in his right upper quadrant seems to be in the front of his abdomen sometimes radiated into his back and then this morning noticed that it was going into his right chest. Patient has no history of abdominal surgeries he has a family history of gallbladder disease on his mom side of the family. No family history of coronary artery disease. The patient is treated for hyper tension. The patient has tried Tylenol took some this morning and this seems to have taken the edge off. The patient has not had anything to eat since yesterday morning. 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 Right Upper Abdomen Pain Score (Numeric/FACES): 5 - Related Data Allergies Allergy/AdvReac Type Severity Reaction Status Date / Time No Known Allergies Allergy Verified 05/11/18 21:26 Home Meds: Home Meds Doxycycline [Vibramycin] 100 mg PO BID #14 cap 10/21/20 [Rx] Mv-Mn/Folic Acid/Lutein/Wmg418 [Ricardo Multi For Men Tablet] 1 each PO DAILY 10/21/20 [History] Olmesartan Medoxomil [Benicar] 40 mg PO DAILY 10/21/20 [History] Sertraline [Zoloft] 50 mg PO DAILY 10/21/20 [History] hydroCHLOROthiazide [Hydrochlorothiazide] 25 mg PO DAILY 10/21/20 [History] Past Medical History - Past Health History Medical/Surgical History: Denies Medical/Surgical History HEENT History: Reports: Impaired Vision Other HEENT History: wears glasses Cardiovascular History: Reports: High Cholesterol, Hypertension Respiratory History: Reports: Other (See Below) Other Respiratory History: ? asthma r/t work conditions Gastrointestinal History: Reports: None Musculoskeletal History: Reports: Fracture Neurological History: Reports: Migraines Psychiatric History: Reports: Anxiety Dermatologic History: Reports: Cellulitis Other Dermatologic History: Stepped on a nail as a kid and was hospitalized due to infection - Infectious Disease History Infectious Disease History: Reports: None - Past Surgical History HEENT Surgical History: Reports: None Cardiovascular Surgical History: Reports: None GI Surgical History: Reports: Colonoscopy Neurological Surgical History: Reports: None Musculoskeletal Surgical History: Reports: ORIF, Shoulder Surgery Other Musculoskeletal Surgeries/Procedures:: Wrist surgery Social & Family History - Family History Family Medical History: No Pertinent Family History - Tobacco Use Tobacco Use Status *Q: Never Tobacco User - Caffeine Use Caffeine Use: Reports: Coffee - Recreational Drug Use Recreational Drug Use: No - Living Situation & Occupation Living situation: Reports: , with Family (2 daughters) Occupation: Employed ([employer]) ED ROS GENERAL - Review of Systems Review Of Systems: See Below Constitutional: Reports: No Symptoms HEENT: Reports: No Symptoms Respiratory: Reports: Pleuritic Chest Pain (He has some discomfort in the right lower chest with deep breathing) Cardiovascular: Reports: Chest Pain (Vague right-sided lower chest discomfort) Endocrine: Reports: No Symptoms GI/Abdominal: Reports: Abdominal Pain, Nausea. Denies: Constipation, Diarrhea, Vomiting : Reports: No Symptoms Musculoskeletal: Reports: No Symptoms Neurological: Reports: No Symptoms ED EXAM, GI/ABD - Physical Exam Exam: See Below Exam Limited By: No Limitations General Appearance: Alert, No Apparent Distress Head: Atraumatic, Normocephalic Neck: Normal Inspection, Supple, Non-Tender, Full Range of Motion. No: Lymphadenopathy (L), Lymphadenopathy (R) Respiratory/Chest: No Respiratory Distress, Lungs Clear, Normal Breath Sounds Cardiovascular: Normal Peripheral Pulses, Regular Rate, Rhythm, No Edema GI/Abdominal Exam: Normal Bowel Sounds, Soft, Tender (Right upper quadrant discomfort noted no other palpatory discomfort noted in the abdomen). No: Guarding, Rigid, Rebound Back Exam: Normal Inspection. No: CVA Tenderness (L), CVA Tenderness (R) Extremities: Normal Inspection, No Pedal Edema Neurological: Alert, Oriented, Normal Cognition #1 Interpretation EKG Date: 10/21/20 Rhythm: NSR Rate (Beats/Min): 92 [place]: Normal P-Wave: Present QRS: Other (Normal QRS morphology early transition) ST-T: Normal QT: Normal Comparison: NA - No Prior EKG EKG Interpretation Comments: Nonacute EKG Course - Vital Signs Last Recorded V/S: Last Vital Signs Temp 36.3 C 10/21/20 08:32 Pulse 100 10/21/20 08:32 Resp 18 10/21/20 08:32 BP 158/98 H 10/21/20 08:32 Pulse Ox 94 L 10/21/20 08:32 - Orders/Labs/Meds Orders: Active Orders 24 hr Category Date Time Status EKG Documentation Completion [RC] STAT Care 10/21/20 08:56 Active Labs: Laboratory Tests 10/21/20 10/21/20 10/21/20 Range/Units 08:50 08:50 08:50 WBC 14.54 H (4.23-9.07) K/mm3 RBC 4.64 (4.63-6.08) M/mm3 Hgb 13.8 (13.7-17.5) gm/dl Hct 42.1 (40.1-51.0) % MCV 90.7 (79.0-92.2) fl MCH 29.7 (25.7-32.2) pg MCHC 32.8 (32.2-35.5) g/dl RDW Std Deviation 44.2 H (35.1-43.9) fL Plt Count 375 H D (163-337) K/mm3 MPV 8.3 L (9.4-12.3) fl Neut % (Auto) 79.9 H (34.0-67.9) % Lymph % (Auto) 7.4 L (21.8-53.1) % Bartholomew % (Auto) 9.6 (5.3-12.2) % Eos % (Auto) 2.1 (0.8-7.0) Baso % (Auto) 0.3 (0.1-1.2) % Neut # (Auto) 11.61 H (1.78-5.38) K/mm3 Lymph # (Auto) 1.08 L (1.32-3.57) K/mm3 Bartholomew # (Auto) 1.39 H (0.30-0.82) K/mm3 Eos # (Auto) 0.31 (0.04-0.54) K/mm3 Baso # (Auto) 0.05 (0.01-0.08) K/mm3 Manual Slide Review Abnormal smear PT (9.7-12.0) SECONDS INR APTT (21.7-31.4) SECONDS D-Dimer, Quantitative (0.19-0.50) mg/L Sodium 139 (136-145) mEq/L Potassium 3.8 (3.5-5.1) mEq/L Chloride 99 (98-107) mEq/L Carbon Dioxide 30 (21-32) mEq/L Anion Gap 13.8 (5-15) BUN 13 (7-18) mg/dL Creatinine 1.0 (0.7-1.3) mg/dL Est Cr Clr Drug Dosing 92.30 mL/min Estimated GFR (MDRD) > 60 (>60) mL/min BUN/Creatinine Ratio 13.0 L (14-18) Glucose 122 H (74-106) mg/dL Calcium 9.4 (8.5-10.1) mg/dL Total Bilirubin 0.4 (0.2-1.0) mg/dL AST 13 L (15-37) U/L ALT 28 (16-63) U/L Alkaline Phosphatase 29 L (46-116) U/L Troponin I < 0.017 (0.00-0.056) ng/mL Total Protein 8.2 (6.4-8.2) g/dl Albumin 3.3 L (3.4-5.0) g/dl Globulin 4.9 gm/dL Albumin/Globulin Ratio 0.7 L (1-2) Lipase 102 (73-393) U/L 10/21/20 10/21/20 Range/Units 08:50 08:50 WBC (4.23-9.07) K/mm3 RBC (4.63-6.08) M/mm3 Hgb (13.7-17.5) gm/dl Hct (40.1-51.0) % MCV (79.0-92.2) fl MCH (25.7-32.2) pg MCHC (32.2-35.5) g/dl RDW Std Deviation (35.1-43.9) fL Plt Count (163-337) K/mm3 MPV (9.4-12.3) fl Neut % (Auto) (34.0-67.9) % Lymph % (Auto) (21.8-53.1) % Bartholomew % (Auto) (5.3-12.2) % Eos % (Auto) (0.8-7.0) Baso % (Auto) (0.1-1.2) % Neut # (Auto) (1.78-5.38) K/mm3 Lymph # (Auto) (1.32-3.57) K/mm3 Bartholomew # (Auto) (0.30-0.82) K/mm3 Eos # (Auto) (0.04-0.54) K/mm3 Baso # (Auto) (0.01-0.08) K/mm3 Manual Slide Review PT 10.9 (9.7-12.0) SECONDS INR 1.02 APTT 30.5 (21.7-31.4) SECONDS D-Dimer, Quantitative 0.81 H (0.19-0.50) mg/L Sodium (136-145) mEq/L Potassium (3.5-5.1) mEq/L Chloride (98-107) mEq/L Carbon Dioxide (21-32) mEq/L Anion Gap (5-15) BUN (7-18) mg/dL Creatinine (0.7-1.3) mg/dL Est Cr Clr Drug Dosing mL/min Estimated GFR (MDRD) (>60) mL/min BUN/Creatinine Ratio (14-18) Glucose (74-106) mg/dL Calcium (8.5-10.1) mg/dL Total Bilirubin (0.2-1.0) mg/dL AST (15-37) U/L ALT (16-63) U/L Alkaline Phosphatase (46-116) U/L Troponin I (0.00-0.056) ng/mL Total Protein (6.4-8.2) g/dl Albumin (3.4-5.0) g/dl Globulin gm/dL Albumin/Globulin Ratio (1-2) Lipase (73-393) U/L - Re-Assessments/Exams Free Text/Narrative Re-Assessment/Exam: 10/21/20 09:04 We will check an EKG and troponin as well as upper abdominal labs. Ultrasound ordered. Patient does not need anything for pain at this time. States he took Tylenol this morning and it took the edge off. He has not had anything to eat since yesterday morning. 10/21/20 10:47 Limited abdominal ultrasound is unremarkable for gallbladder disease. However, small right-sided pleural effusion was noted and some hyperechoic areas within the right lobe of the liver most compatible with hemangiomas white count is elevated at 14,000. At this point will check a D-dimer and chest x-ray. Patient is doing well at this time from pain standpoint. Patient states that before these symptoms started a week ago he did have some generalized achiness. He is coughing some at this time minimally productive. 10/21/20 13:06 Chest x-ray showed some possible atelectasis versus infiltrate with the patient's white count of 14,000 it is suspicious for developing pneumonia. Chest CT is unremarkable other than a small pleural effusion on the right side no pneumonia no pneumothorax no other causes. I suspect this could be related to a developing pleuritis or pleurisy. With the patient's worsening cough now becoming productive we will start him on doxycycline. Departure - Departure Time of Disposition: 13:07 Disposition: Home, Self-Care 01 Clinical Impression: Pleural effusion, right, Cough - Discharge Information Instructions: Abdominal Pain, Adult Referrals: Eulalia Ceballos [Primary Care Provider] - Forms: ED Department Discharge Additional Instructions: Return to the emergency room with any questions problems or worsening symptoms. 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 You have also been started on doxycycline, this is an antibiotic. Take 1 twice daily until all gone. Follow-up with your regular health care provider or the [place] [facility] the middle of this next week for recheck. Sepsis Event Note (ED) - Evaluation Sepsis Screening Result: No Definite Risk - Focused Exam Vital Signs: Vital Signs Temp Pulse Resp BP Pulse Ox 10/21/20 08:32 36.3 C 100 18 158/98 H 94 L - My Orders Last 24 Hours: My Active Orders 10/21/20 08:56 EKG Documentation Completion [RC] STAT - Assessment/Plan Last 24 Hours: My Active Orders 10/21/20 08:56 EKG Documentation Completion [RC] STAT
--- NOTE | 2020-10-21 10:10 | US ---
Limited abdominal ultrasound: Multiple real-time were obtained of the upper right abdomen. Comparison: No prior abdominal imaging is available. Findings: Hyperechoic lesion is seen within the right lobe of the liver which measures approximately 2.8 cm in greatest size. Second lesion is also noted which measures approximately 3.0 cm in greatest size. These are most likely due to hemangiomas. Gallbladder contains no shadowing gallstones. No gallbladder wall thickening or biliary duct dilatation is seen. Right kidney shows no hydronephrosis or mass. Right kidney has a length of 12.3 cm. Proximal aorta has an AP dimension of 2.1 cm with no aneurysm. Pancreas is completely obscured by bowel gas. Inferior vena cava is patent. Main portal vein shows normal hepatopedal flow. Very small right-sided pleural effusion is seen. Impression: 1. Two hyperechoic areas within the right lobe of the liver compatible with hemangiomas. 2. Small right-sided pleural effusion. 3. Nonvisualized pancreas. 4. No additional abnormality is seen. Diagnostic code #3
--- NOTE | 2020-10-21 12:58 | CR ---
Chest: 2 views of the chest were obtained. Comparison: No previous chest imaging is available. Small right-sided pleural effusion is noted. Slight blunting of the right lateral and posterior costophrenic angle are seen compatible with slight atelectasis. Mild linear densities are noted within both lung bases most likely represent areas of atelectasis. Upper lungs are clear. Heart size and mediastinum are normal. Bony structure shows mild scattered disc space narrowing within the spine. Previous left shoulder surgery is noted. Impression: 1. Small right-sided pleural effusion. 2. Findings within both lung bases suspicious for atelectasis unless patient has infectious symptoms for minimal pneumonia. 3. Other findings which are believed to be incidental. Diagnostic code #3
--- NOTE | 2020-10-21 12:58 | CT ---
CT chest Technique: Multiple axial sections were obtained from above the lung apices inferiorly through the lung bases. Intravenous contrast was utilized. Study was performed as a pulmonary angiogram protocol. Comparison: Prior chest x-ray performed earlier on the same day (11:04 AM). Findings: Small right-sided pleural effusion is noted. Areas of atelectasis or pneumonia are seen posteriorly which are adjacent to the pleural effusion. Lungs otherwise are clear. Pulmonary arteries show no filling defects to indicate pulmonary embolism. No pericardial thickening is seen. Thoracic aorta shows no aneurysm. Visualized upper abdominal structures show nothing acute. Small lesion is noted within the right kidney which is believed to be benign. Impression: 1. Right-sided pleural effusion with adjacent atelectasis or pneumonia. 2. No discrete findings of pulmonary embolism. 3. No other acute abnormality is appreciated. Diagnostic code #3
== END 2020-10-21 13:36 | disposition home or self-care (01) ==
LOC: JD.ED 08:24
DX: J90 Pleural effusion, not elsewhere classified (principal); I10 Essential (primary) hypertension; Z79.899 Other long term (current) drug therapy
CPT/HCPCS: 36415; 71046; 71046-26; 71275; 71275-26; 76705; 76705-26; 80053; 83690; 84484; 85025; 85379; 85610; 85730; 93005; 93010; 99284; 99285-25